=== PATIENT | female | born 1970 | race Two or more races ===

== ENCOUNTER 2022-01-07 10:05 | Day surgery (SDC) | payer OTHER ==
[~2022-01-07 10:05] MED LIST: LEVOTHYROXINE25 MCG PO; LOSARTAN-HCTZ1 EAC1 PO
== END 2022-01-07 19:00 | disposition home or self-care (01) ==
LOC: CIR.AMB 10:05
PROVIDERS: ATTEND Specialist
DX: N72 Inflammatory disease of cervix uteri (principal); Z20.822 Contact with and (suspected) exposure to COVID-19; I10 Essential (primary) hypertension; E03.9 Hypothyroidism, unspecified

== ENCOUNTER 2023-08-18 05:00 | Day surgery (SDC) | payer OTHER ==
[~2023-08-18] VITALS: Ht 157.5 cm; Wt 72.6 kg
[2023-08-18] MEDS ORDERED: OXYC1TAB9 PO (10:18)
== END 2023-08-18 15:00 | disposition home or self-care (01) ==
LOC: CIR.AMB 05:00
PROVIDERS: ATTEND Surgery
DX: K64.4 Residual hemorrhoidal skin tags (principal); K64.2 Third degree hemorrhoids; K64.8 Other hemorrhoids; K62.5 Hemorrhage of anus and rectum; K62.89 Other specified diseases of anus and rectum; K59.09 Other constipation; I10 Essential (primary) hypertension; Z20.822 Contact with and (suspected) exposure to COVID-19